=== PATIENT | female | born 1995 | race Caucasian/White ===

== ENCOUNTER 2017-05-06 05:55 | Day surgery (SDC) | payer BC ==
[~2017-05-06] VITALS: Ht 165.1 cm; Wt 63.0 kg
[2017-05-06] MEDS: LACTATED RINGERS 1,000 ML IV PRN ×2 (06:30→07:47)
[2017-05-06 06:44] LABS: BASOPHILS # (AUTO) 0.1 10^3/uL (0.0-0.1); BASOPHILS % (AUTO) 1 % (0-10); EOSINOPHILS # (AUTO) 0.2 10^3/uL (0.0-0.3); EOSINOPHILS % (AUTO) 2 % (0-10); HEMATOCRIT 34 % (35-52); HEMOGLOBIN 12.8 G/DL (11.5-16.0); LYMPHOCYTES # (AUTO) 2.5 X 10^3 (1.0-4.0); LYMPHOCYTES % (AUTO) 34 % (12-44); MEAN CORPUSCULAR HEMOGLOBIN 30 PG (25-34); MEAN CORPUSCULAR HGB CONC 37 G/DL (32-36); MEAN CORPUSCULAR VOLUME 81 FL (80-99); MEAN PLATELET VOLUME 9.8 FL (7.4-10.4); MONOCYTES # (AUTO) 0.5 X 10^3 (0.0-1.0); MONOCYTES % (AUTO) 7 % (0-12); NEUTROPHILS % (AUTO) 56 % (42-75); PLATELET COUNT 233 10^3/uL (130-400); RED BLOOD COUNT 4.25 10^6/uL (4.35-5.85); WHITE BLOOD COUNT 7.3 10^3/uL (4.3-11.0)
--- NOTE | 2017-05-06 06:58 | Progress Note-Pre Operative ---
Pre-Operative Progress Note H&P Reviewed The H&P was reviewed, patient examined and no changes noted. Date Seen by Provider: May 06, 2017 Time Seen by Provider: 06:57 Date H&P Reviewed: May 06, 2017 Time H&P Reviewed: 06:58 Pre-Operative Diagnosis: DUB/menorrhagia/ polyp LUIS DANIEL GARCIA MD May 06, 2017 6:58 am
[2017-05-06] MEDS ORDERED: D5 LR IV SOLUTION 1,000 ML IV SCH (06:59)
--- NOTE | 2017-05-06 06:59 | Progress Note-Post Operative ---
Post-Operative Progess Note Surgeon (s)/Decorative Engraver Apprentice (s) Surgeon LUIS DANIEL GARCIA MD Decorative Engraver Apprentice: none Pre-Operative Diagnosis DUB/menorrhagia/ polyp Post-Operative Diagnosis same with pathology pending Procedure & Operative Findings Date of Procedure 05/06/17 Procedure Performed/Findings hysteroscopy with directed biopsies Anesthesia Type GETA Estimated Blood Loss Estimated blood loss (mL): minimal Specimens/Packing Specimens Removed directed endometrial biopsies Packing: none LUIS DANIEL GARCIA MD May 06, 2017 06:59
[2017-05-06] MEDS ORDERED: MIDAZOLAM 2 MG/2 ML (VERSED) VIAL ONE (07:00)
[2017-05-06] MEDS ORDERED: ceFAZolin 1 GM/NS 50 ML IVPB IV ONE ×2 (07:00)
[2017-05-06] MEDS ORDERED: ESTROGENS CONJ IV 25 MG/5 ML (PREMARIN) VIAL IVP ONE (07:00)
[2017-05-06] MEDS ORDERED: KETOROLAC 30 MG/ML VIAL IVP ONE (07:00)
[2017-05-06] MEDS ORDERED: fentaNYL INJECTION 100 MCG/2 ML AMP ONE (07:00)
[2017-05-06] MEDS ORDERED: MEPERIDINE (DEMEROL) INJ 100 MG/ML IM ONE (07:00)
[2017-05-06] MEDS ORDERED: oxyCODONE/APAP 10/325MG (PERCOCET 10) TABLET PO PRN (07:00)
[2017-05-06] MEDS ORDERED: CATHETER FLUSH 10 ML SYR IV PRN (07:00)
[2017-05-06] MEDS ORDERED: ONDANSETRON 4 MG/2 ML (SDV) Z0FRAN IVP PRN ×2 (07:00→08:00)
[2017-05-06] MEDS ORDERED: PROMETHAZINE INJ 25 MG/ML (PHENERGAN) AMP IM ONE (07:00)
[2017-05-06] MEDS ORDERED: IBUP-1780 PO (07:02)
[2017-05-06] MEDS ORDERED: OXYC-465 PO (07:02)
--- NOTE | 2017-05-06 07:04 | Discharge Instructions ---
Discharge Instructions Discharge Medications New, Converted or Re-Newed RX: RX on Chart Patient Instructions Patient Instructions: aas directed Return to The Hospital For: as directed Activity & Diet Discharge Diet: No Restrictions Activity as Tolerated: No Orders-Post D/C & Referrals Follow Up Appt: Call to make follow up appt. for patient in 2 weeks. Activity: As tolerated. Diet: As tolerated-Clear Liquids only if nauseated. May shower or tub bathe as desired. Nothing per vagina (no tampons, douching, or intercourse) for 2 weeks. Patient to return to the clinic as soon as possible for: Temperature greater than 101F, Severe Pain, Foul discharge from incision or vagina, Excessive Bleeding (more than a period). LUIS DANIEL GARCIA MD May 06, 2017 7:04 am
[2017-05-06 07:19] VITALS: BP 110/75
[2017-05-06] MEDS ORDERED: WATER (STERILE) FOR INJECTION 10 ML ONE (07:55)
[2017-05-06] MEDS ORDERED: fentaNYL INJECTION 100 MCG/2 ML AMP IVP PRN (08:00)
--- NOTE | 2017-05-06 08:25 | OPERATIVE REPORT ---
DATE OF SERVICE: 05/06/2017 PREOPERATIVE DIAGNOSIS: Menometrorrhagia. POSTOPERATIVE DIAGNOSIS: Menometrorrhagia with endometrial polyp. OPERATIVE PROCEDURE: Hysteroscopy with directed biopsies from the right and left tubal ostia. OPERATIVE DESCRIPTION: With the patient in the supine position under satisfactory general anesthesia, she was repositioned in the dorsal lithotomy position in the [facility] stirrups and prepped and draped in the usual fashion for vaginal surgery. Urinary bladder was drained with a straight catheter. A weighted speculum placed in the posterior fornix of the vagina, cervix exposed and grasped anteriorly with single tooth tenaculum. The uterus was sounded to 9 cm with uterine sound. The cervix was then serially dilated with Clark dilators to accommodate a hysteroscope, which was introduced and using LR as a distending medium, the endometrial cavity was examined. The endometrial cavity appeared normal except that there was a cluster of polyps at each tubal ostium. The polypoid masses were biopsied, completely off the right tubal ostium and then the left and these specimens were labeled appropriately and sent to pathology for permanent section. The endometrial cavity itself was completely benign and somewhat atrophic appearing. The hysteroscope was removed as there was not a significant endometrial tissues, D and C was skipped. The procedure was terminated. The tenaculum was removed from the cervix. There was no bleeding from the puncture sites. There was no bleeding from the cervical os. Sponge and needle counts were correct on completion of the procedure. Estimated blood loss minimal, a total of 1500 mL of LR was used and almost timeout was recovered. The patient was now uneventfully awakened from her general anesthesia and transferred to the recovery room in stable condition with plans for discharge home [facility]. Job ID: [id number] DocumentID: [id number] Dictated Date: 05/06/2017 07:37:26 Furniture Reproducer Date: 05/06/2017 08:25:05 Dictated By: LUIS DANIEL GARCIA MD MTDD
[2017-05-06 08:35] VITALS: BP 101/65
[2017-05-06 09:05] VITALS: BP 96/64
[2017-05-06 09:35] VITALS: BP 102/63
[2017-05-06 09:58] VITALS: BP 102/63
[2017-05-06] MEDS ORDERED: proPOfol 200 MG/20 ML (DIPRIVAN) VIAL IV ONE (14:57)
[2017-05-06] MEDS ORDERED: LIDOCAINE PF 2% 5 ML (XYLOCAINE) VIAL ONE (14:57)
[2017-05-06] MEDS ORDERED: DEXAMETHASONE 10 MG/ML (DECADRON) 1 ML VIAL ONE (14:57)
[2017-05-06] MEDS ORDERED: SEVOFLURANE (ULTANE) 15 ML INHAL SOLN ONE (14:57)
[2017-05-06] MEDS ORDERED: ONDANSETRON 4 MG/2 ML (SDV) Z0FRAN ONE (14:57)
== END 2017-05-06 09:58 | disposition home or self-care (01) ==
LOC: SDC 05:55
PROVIDERS: ATTEND Obstetrics & Gynecology
DX: N92.1 Excessive and frequent menstruation with irregular cycle (principal); N84.0 Polyp of corpus uteri
CPT/HCPCS: 36415; 84703; 85025; 87081